=== PATIENT | male | born 1970 | race Caucasian/White ===

== ENCOUNTER 2019-02-02 19:00 | Emergency (ER) | payer BC ==
[2019-02-02] MEDS ORDERED: Tetracaine HCl/PF 0.5% 4 ML Bottle EYERT ONE (19:08)
[2019-02-02] MEDS ORDERED: Diphtheria,Pertussis(Acell),Tetanus Vaccine 0.5 ML Syringe IM ONE (19:21)
--- NOTE | 2019-02-02 19:24 | EDM.PDOC ---
ED HPI GENERAL MEDICAL PROBLEM - General Chief Complaint: Eye Problems Stated Complaint: STEEL IN RT EYE Time Seen by Provider: 02/02/19 19:13 - History of Present Illness INITIAL COMMENTS - FREE TEXT/NARRATIVE: HISTORY AND PHYSICAL: History of present illness: Patient's 48-year-old white male presents 24 hours status post foreign body to his left eye he believes this is a piece of metal he denies other concern. Review of systems: As per history of present illness and below otherwise all systems reviewed and negative. Past medical history: As per history of present illness and as reviewed below otherwise noncontributory. Surgical history: As per history of present illness and as reviewed below otherwise noncontributory. Social history: No reported history of drug or alcohol abuse. Family history: As per history of present illness and as reviewed below otherwise noncontributory. Physical exam: HEENT: Atraumatic, normocephalic, patient has a approximately 1-2 mm metallic retained foreign body at the 4 o'clock position of his left eye. Anterior chambers clear pupils reactive, negative for conjunctival pallor or scleral icterus, mucous membranes moist, throat clear, neck supple, nontender, trachea midline. Lungs: Clear to auscultation, breath sounds equal bilaterally, chest nontender. Heart: S1S2, regular, negative for clicks, rubs, or JVD. Abdomen: Soft, nondistended, nontender. Negative for masses or hepatosplenomegaly. Negative for costovertebral tenderness. Pelvis: Stable nontender. Genitourinary: Deferred. Rectal: Deferred. Extremities: Atraumatic, negative for cords or calf pain. Neurovascular unremarkable. Neuro: Awake, alert, oriented. Cranial nerves II through XII unremarkable. Cerebellum unremarkable. Motor and sensory unremarkable throughout. Exam nonfocal. Diagnostics: None Therapeutics: None Impression: #1 retained corneal foreign body left eye 24 hours status post Definitive disposition and diagnosis as appropriate pending reevaluation and review of above. left eye Pain Score (Numeric/FACES): 10 - Related Data Allergies Allergy/AdvReac Type Severity Reaction Status Date / Time No Known Allergies Allergy Verified 02/02/19 19:08 Home Meds: Home Meds Lisinopril [Prinivil] 1 tab DAILY 02/02/19 [History] atorvaSTATin [Lipitor] 10 mg PO BEDTIME 02/02/19 [History] Past Medical History - Past Health History Medical/Surgical History: Denies Medical/Surgical History Cardiovascular History: Reports: High Cholesterol, Hypertension Social & Family History - Family History Family Medical History: Noncontributory - Tobacco Use Smoking Status *Q: Current Every Day Smoker Years of Tobacco use: 35 Packs/Tins Daily: 1 - Recreational Drug Use Recreational Drug Use: No ED ROS GENERAL - Review of Systems Review Of Systems: ROS reveals no pertinent complaints other than HPI. ED EXAM GENERAL W FULL EYE - Physical Exam Exam: See Below (See dictation) Course - Vital Signs Last Recorded V/S: Last Vital Signs Temp 36.0 C 02/02/19 19:06 Pulse 78 02/02/19 19:06 Resp 18 02/02/19 19:06 BP 165/90 H 02/02/19 19:06 Pulse Ox 94 L 02/02/19 19:06 - Orders/Labs/Meds Meds: Medications Discontinued Medications Generic Name Dose Route Start Last Admin Trade Name Freq PRN Reason Stop Dose Admin Tetracaine HCl 4 ml 02/02/19 19:08 02/02/19 19:18 Tetracaine 0.5% Steri-Unit Candy EYERT 02/02/19 19:09 1 drop ASDIRECTED ONE Administration Departure - Departure Time of Disposition: 19:24 Disposition: Home, Self-Care 01 Condition: Good Clinical Impression: Corneal FB (foreign body) - Discharge Information Referrals: PCP,Not In Area [Primary Care Provider] - Additional Instructions: The following information is given to patients seen in the emergency department who are being discharged to home. This information is to outline your options for follow-up care. We provide all patients seen in our emergency department with a follow-up referral. The need for follow-up, as well as the timing and circumstances, are variable depending upon the specifics of your emergency department visit. If you don't have a primary care physician on staff, we will provide you with a referral. We always advise you to contact your personal physician following an emergency department visit to inform them of the circumstance of the visit and for follow-up with them and/or the need for any referrals to a consulting specialist. The emergency department will also refer you to a specialist when appropriate. This referral assures that you have the opportunity for followup care with a specialist. All of these measure are taken in an effort to provide you with optimal care, which includes your followup. Under all circumstances we always encourage you to contact your private physician who remains a resource for coordinating your care. When calling for followup care, please make the office aware that this follow-up is from your recent emergency room visit. If for any reason you are refused follow-up, please contact the [facility] emergency department at and asked to speak to the emergency department charge nurse. [facility] [address] [place] [id number] Follow-up with Dr. Krishnan tomorrow arrive a clinic 7:30 AM return as needed as discussed
[2019-02-02] MEDS ORDERED: Acetaminophen/HYDROcodone 325-10 MG Tab PO ONE (19:25)
== END 2019-02-02 19:39 | disposition home or self-care (01) ==
LOC: MW.ED 19:00
DX: T15.91XA Foreign body on external eye, part unspecified, right eye, initial encounter (principal); I10 Essential (primary) hypertension; E78.5 Hyperlipidemia, unspecified; F17.210 Nicotine dependence, cigarettes, uncomplicated; Z79.899 Other long term (current) drug therapy
CPT/HCPCS: 90471; 90715; 99283; A9270

== ENCOUNTER 2023-02-11 20:32 | Emergency (ER) | payer OTHER, BC | END 2023-02-11 23:31 | disposition home or self-care (01) | LOC: MW.ED 20:32 | DX: S69.91XA Unspecified injury of right wrist, hand and finger(s), initial encounter (principal); E78.00 Pure hypercholesterolemia, unspecified; I10 Essential (primary) hypertension; Z79.899 Other long term (current) drug therapy; V89.2XXA Person injured in unspecified motor-vehicle accident, traffic, initial encounter; Y92.410 Unspecified street and highway as the place of occurrence of the external cause | CPT/HCPCS: 73110-26-RT; 73110-RT; 73130-26-RT; 73130-RT; 99283; 99284 ==